=== PATIENT | female | born 1995 | race Caucasian/White ===

== ENCOUNTER 2016-03-19 14:47 | Emergency (ER) | payer MEDICAID | END 2016-03-19 17:30 | disposition home or self-care (01) | LOC: ER 14:47 | DX: L03.115 Cellulitis of right lower limb (principal) | CPT/HCPCS: 96365 ==

== ENCOUNTER 2016-03-21 20:43 | Emergency (ER) | payer MEDICAID ==
[2016-03-21] MEDS ORDERED: KETOROLAC 60 MG/2 ML VIAL IM ONE (22:47)
[2016-03-21] MEDS ORDERED: Ibuprofen 600 MG TAB ONE (22:53)
== END 2016-03-21 23:34 | disposition home or self-care (01) ==
LOC: ER 20:43
DX: L52 Erythema nodosum (principal)
CPT/HCPCS: 36415; 71010; 80048; 85025; 85610; 85652; 85730; 86403; 87040; 87880